=== PATIENT | female | born 1960 | race African-American/Black ===

== ENCOUNTER 2018-02-15 11:06 | Day surgery (SDC) | payer BC ==
[2018-02-14 15:14] VITALS: BMI 36.6
[2018-02-15] MEDS ORDERED: LIDOCAINE HCL/PF 2% SDV 5ML VIAL ONE (12:49)
[2018-02-15] MEDS ORDERED: ROCURONIUM BROMIDE 50 MG/5 ML VIAL ONE (12:49)
[2018-02-15] MEDS ORDERED: fentaNYL CITRATE 250 MCG/5 ML VIAL ONE (12:49)
[2018-02-15] MEDS ORDERED: MIDAZOLAM HCL 2 MG/2 ML SINGLE DOSE VIAL ONE (12:50)
[2018-02-15] MEDS ORDERED: PROPOFOL 20 ML ONE (12:50)
[2018-02-15] MEDS ORDERED: KETOROLAC TROMETHAMINE 30 MG/1 ML VIAL ONE (12:51)
[2018-02-15] MEDS ORDERED: GLYCOPYRROLATE 0.2 MG/1 ML VIAL ONE (12:51)
[2018-02-15] MEDS ORDERED: ceFAZolin SODIUM 1 GM VIAL ONE (12:51)
[2018-02-15] MEDS ORDERED: DEXAMETHASONE SOD PHOSPHATE 4 MG/1 ML VIAL ONE (12:51)
[2018-02-15] MEDS ORDERED: BUPIVACAINE HCL/PF 0.5% (5MG/ML) 10 ML VIAL ONE (12:57)
[2018-02-15] MEDS ORDERED: SCOPOLAMINE HYDROBROMIDE 1 PATCH PATCH.TD72 ONE (13:10)
[2018-02-15] MEDS ORDERED: ACETAMINOPHEN INJECTION 100 ML IVPB ONE (13:27)
[2018-02-15] MEDS ORDERED: CLINDAMYCIN 900 MG PREMIX BAG IVPB ONE (13:27)
[2018-02-15] MEDS ORDERED: ePHEDrine SULFATE 50 MG/1 ML AMPULE ONE ×2 (13:43)
[2018-02-15] MEDS ORDERED: BUPIVACAINE HCL/PF 0.5% (5MG/ML) 10 ML VIAL IJ ONE (14:30)
[2018-02-15] MEDS ORDERED: NEOSTIGMINE METHYLSULFATE 0.5 MG/ML - 10 ML MDV ONE (15:07)
[2018-02-15] MEDS ORDERED: ONDANSETRON 4 MG/2 ML VIAL IVPUSH PRN ×2 (15:33→15:52)
[2018-02-15] MEDS ORDERED: oxyCODONE HCL 5 MG TABLET PO PRN (15:33)
[2018-02-15] MEDS ORDERED: SODIUM CHLORIDE 1,000 ML IV SCH (15:45)
--- NOTE | 2018-02-15 15:47 | OP ---
Operative Note - Note: Operative Date: 02/18/18 Pre-Operative Diagnosis: Morbid Obesity. Hypertension Operation: Laparoscopic Gastric Band. Wedge Biopsy of left lobe of liver. Diagnostic Laparoscopy Findings: 30 cc proximal Gastric pouch created with APL Band Very enlarged left lobe of liver had wedge biopsy performed Implants: APL GAstric Band Post-Operative Diagnosis: Same as Pre-op (Hepatomegaly) Surgeon: Santos Reece Alarm Technician: Caesar Bee Anesthesia: General Specimens Removed: Wedge biopsy of left lobe of liver Estimated Blood Loss (mls): 30 Operative Report Dictated: Yes
[2018-02-15] MEDS ORDERED: PROMETHAZINE HCL 25 MG/1 ML VIAL IVPUSH PRN (15:52)
[2018-02-15] MEDS ORDERED: LACTATED RINGERS SOLUTION 1,000 ML IV SCH (16:00)
[2018-02-15] MEDS ORDERED: FAMOTIDINE 20 MG/50 ML IVPB 20 MG/50 ML MG IVPB ONE (16:42)
[2018-02-15] MEDS ORDERED: ONDANSETRON 4 MG/2 ML VIAL ONE (16:42)
[2018-02-15] MEDS ORDERED: FAMOTIDINE 20 MG PREMIXED IVPB IVPB ONE (16:45)
[2018-02-15 17:04] LABS: HEMATOCRIT 38.5 % (32.4-45.2); HEMOGLOBIN 13.2 GM/dL (10.7-15.3); MCH 27.3 pg (25.7-33.7); MCHC 34.3 g/dl (32.0-36.0); MEAN CELL VOLUME 79.5 fl (80-96); MEAN PLT VOLUME 8.2 fl (7.5-11.1); PLATELET COUNT 318 K/MM3 (134-434); RBC 4.85 M/mm3 (3.60-5.2); RDW 15.1 % (11.6-15.6); WHITE BLOOD COUNT 13.4 K/mm3 (4.0-10.0)
[2018-02-15 17:19] LABS: ANION GAP 8 MMOL/L (8-16); BLOOD UREA NITROGEN 10 mg/dL (7-18); CALCIUM 8.7 mg/dL (8.5-10.1); CHLORIDE 108 mmol/L (98-107); CO2 28 mmol/L (21-32); CREATININE 0.8 mg/dL (0.55-1.02); GLUCOSE,RANDOM 150 mg/dL (74-106); POTASSIUM 3.9 mmol/L (3.5-5.1); SODIUM 144 mmol/L (136-145)
[2018-02-15 17:53] VITALS: TEMP 98.5
[2018-02-15] MEDS ORDERED: oxyCODONE HCL 5 MG TABLET ONE (17:53)
[2018-02-15] MEDS ORDERED: ENOXAPARIN NA (PORCINE) 40 MG/0.4 ML DISP.SYRIN SQ ONE ×2 (18:02→19:00)
[2018-02-15 19:58] VITALS: BP 131/72; PULSE 82
--- NOTE | 2018-02-15 21:37 | OP ---
DATE OF OPERATION: 02/15/2018 PREOPERATIVE DIAGNOSES: 1. Morbid obesity. 2. Hypertension. POSTOPERATIVE DIAGNOSES: 1. Morbid obesity. 2. Hypertension. 3. Hepatomegaly. PROCEDURE PERFORMED: 1. Gastric band for gastric restriction. 2. Wedge biopsy of the left lobe of the liver. 3. Diagnostic laparoscopy. OPERATING SURGEON: Santos Reece MD CREMATORY ATTENDANT: Caesar Bee MD ANESTHESIA: General. OPERATIVE PROCEDURE: The patient was brought into the operating room, placed on the OR table in the supine position. All precautions were taken initially including padding for the back and the feet, and Venodyne boots were placed on both lower extremities. At that point, the abdomen was prepped and draped in the usual manner. A Veress needle was placed in the left upper quadrant, and a pneumoperitoneum was established. A number 12 bladeless trocar was placed in the left upper quadrant. Through that trocar, a laparoscopic camera was placed. Under direct vision, a number 15 bladeless trocar was placed in the right upper quadrant along with a number 5 bladeless trocar and then a number 5 bladeless trocar below the left costal margin. A Esme liver retractor was then placed in the epigastrium to retract the left lobe of the liver. The left lobe was noted to be extremely enlarged and was somewhat difficult to retract in order to obtain visualization of the stomach. Once the liver retractor was then placed, the patient was placed in a 20-degree reverse Trendelenburg position by Anesthesia. As the information assistant surgeon retracted the omentum inferiorly in the left upper quadrant, the operating surgeon used the cautery to score the peritoneum over the left esophagogastric junction. This continued superiorly until the left delonte of the diaphragm was noted. At this point, the information assistant surgeon retracted the stomach toward the patient's left side, and the caudate lobe of the liver was noted. An opening was made in the avascular plane, and the gastrohepatic ligament was partially divided with hemoclips up toward the right esophagogastric junction. The right delonte of the diaphragm was noted, and the peritoneum anterior to it was scored with electrocautery. A laparoscopic instrument was then used to make a blunt tunnel from the right to left delonte until it was free in the left upper quadrant of the abdomen. The gastric band, which was an AP large band, was then prepped by the OR team and placed in the number 15 port site. The band tube was placed in the laparoscopic instrument which was pulled and withdrawn to the patient's right side. The band tubing was placed after the band buckle which was tied or cinched down, and the band was rotated to the patient's right side. A laparoscopic instrument easily fit between the band and the anterior stomach wall. The band was then placed with the Endostitch used to grab a bite of stomach above and below the band and tied over the band. At this point, attention was directed to the enlarged left lobe of liver. With electrocautery turned high, a wedge biopsy was performed on the inferior edge of the left lobe of liver. This included dissecting through the capsule and the parenchyma, and then, the triangular piece of liver was sent off the field as specimen to Pathology. The liver parenchyma was easily controlled with electrocautery so no bleeding was noted. At this point, the band tubing was brought out the number 15 port site under direct vision, all trocars were removed, and pneumoperitoneum was released. The number 15 port site was extended laterally and dissection continued down to the right anterior rectus muscle fascia. Next, 2-0 Prolene sutures were placed at all 4 sites, and the port was then attached to the right anterior rectus muscle. All trocar sites then received 0.25% Marcaine, were all closed with 4-0 Biosyn in subcuticular fashion. The number 15 trocar site, where the port was, was first closed with 3-0 Vicryl in the subcutaneous tissue, followed by 4-0 Biosyn for subcuticular tissue. Dressings were applied. The patient awoke from anesthesia and was transferred out of the operating room to the recovery room in stable condition. EXPECTED BLOOD LOSS: 30 mL Kaleb [id number]
[2018-02-15] MEDS ORDERED: FAMOTIDINE 20 MG/50 ML IVPB 20 MG/50 ML MG IVPB SCH (22:00)
--- NOTE | 2018-02-21 11:35 | PATH ---
Surgical Pathology Report Patient Name: VÍCTOR SEE [facility]. Rec. #: [id number] /Age/Gender: 1960 (Age: 57) / F Account: [id number] Location: [facility] SURGICAL Taken: 02/15/2018 Received: 02/18/2018 Reported: 02/21/2018 Physicians: Santos Reece M.D. Specimen(s) Received LIVER BIOPSY Clinical History Morbid obesity Final Diagnosis LIVER, BIOPSY: LIVER TISSUE WITH MODERATE STEATOSIS (~50%). TRICHROME STAIN SHOWS NO INCREASED FIBROSIS. RETICULIN STAIN SHOWS AN INTACT SINUSOIDAL ARCHITECTURE. IRON STAIN IS NEGATIVE FOR SIDEROSIS. Comment: The biopsy is subcapsular with areas of thermal artifact. Electronically Signed David Theodore M.D. Gross Description Received in formalin labeled "liver biopsy," is a 1.9 x 1.2 x 0.4 cm manzano, irregular portion of soft tissue, consistent with a liver biopsy. The specimen is bisected and entirely submitted in one cassette. /02/18/2018 [facility]02/18/2018
== END 2018-02-15 19:45 | disposition home or self-care (01) ==
LOC: JASU-SURG 11:06 → EDSTATUS 13:00 → JASU-SURG 19:45
PROVIDERS: ATTEND Surgery
PROC: 0FB24ZX Excision of Left Lobe Liver, Percutaneous Endoscopic Approach, Diagnostic (ICD-10-PCS; 2018-02-15)
PROC: 0DV64CZ Restriction of Stomach with Extraluminal Device, Percutaneous Endoscopic Approach (ICD-10-PCS; principal; 2018-02-15 13:00)
DX: E66.01 Morbid (severe) obesity due to excess calories (principal); I10 Essential (primary) hypertension; R16.0 Hepatomegaly, not elsewhere classified
CPT/HCPCS: 43770; 47379; L8699; 36415; 80048; 85027; 86850; 86900; 86901; 88305-TC; 94760; J0131

== ENCOUNTER 2018-03-29 06:56 | Day surgery (SDC) | payer BC ==
[2018-03-28 10:09] VITALS: BMI 33.7
[2018-03-29] MEDS ORDERED: DEXAMETHASONE SOD PHOSPHATE 4 MG/1 ML VIAL ONE (07:24)
[2018-03-29] MEDS ORDERED: fentaNYL CITRATE 250 MCG/5 ML VIAL ONE (07:24)
[2018-03-29] MEDS ORDERED: SUCCINYLCHOLINE CHLORIDE 200 MG/10 ML VIAL ONE (07:24)
[2018-03-29] MEDS ORDERED: PROPOFOL 20 ML ONE ×2 (07:24→09:25)
[2018-03-29] MEDS ORDERED: LIDOCAINE HCL/PF 2% SDV 5ML VIAL ONE (07:24)
[2018-03-29] MEDS ORDERED: ROCURONIUM BROMIDE 50 MG/5 ML VIAL ONE (07:24)
[2018-03-29] MEDS ORDERED: BUPIVACAINE HCL/PF 0.5% (5MG/ML) 10 ML VIAL ONE (07:35)
[2018-03-29] MEDS ORDERED: LACTATED RINGERS SOLUTION 1,000 ML IV SCH (08:15)
[2018-03-29] MEDS ORDERED: ONDANSETRON 4 MG/2 ML VIAL IVPUSH PRN (08:15)
[2018-03-29] MEDS ORDERED: oxyCODONE HCL 5 MG TABLET PO PRN ×2 (08:15)
[2018-03-29] MEDS ORDERED: MIDAZOLAM HCL 2 MG/2 ML SINGLE DOSE VIAL ONE (08:21)
[2018-03-29] MEDS ORDERED: BUPIVACAINE HCL/PF (5 MG/ML) 30 ML VIAL IJ ONE ×2 (08:40)
[2018-03-29] MEDS ORDERED: ePHEDrine SULFATE 50 MG/1 ML AMPULE ONE ×2 (08:49→09:11)
--- NOTE | 2018-03-29 09:44 | OP ---
Operative Note - Note: Operative Date: 03/29/18 Pre-Operative Diagnosis: Right upper abdominal pain. Malfunctioning subcutaneous gastric band port. Morbid Obesity Operation: Revision of subcutaneous right upper abdominal port. Gastric Band adjustment Findings: Subcutaneous port with complete rotation 180 degrees Port places towards midline on linea alba Post-Operative Diagnosis: Same as Pre-op Surgeon: Santos Reece Anesthesia: General Estimated Blood Loss (mls): 10 Operative Report Dictated: Yes
[2018-03-29] MEDS ORDERED: SODIUM CHLORIDE 1,000 ML IV SCH (09:45)
[2018-03-29] MEDS ORDERED: FAMOTIDINE 20 MG/50 ML IVPB 20 MG/50 ML MG IVPB SCH (10:00)
[2018-03-29] MEDS ORDERED: FAMOTIDINE 20 MG PREMIXED IVPB IVPB ONE (10:05)
[2018-03-29] MEDS ORDERED: ONDANSETRON 4 MG/2 ML VIAL ONE (10:28)
--- NOTE | 2018-03-29 11:30 | OP ---
DATE OF OPERATION: 03/29/2018 PREOPERATIVE DIAGNOSES: 1. Right upper abdominal pain secondary to malfunctioning gastric band port. 2. Morbid obesity. POSTOPERATIVE DIAGNOSES: 1. Right upper abdominal pain secondary to malfunctioning gastric band port. 2. Morbid obesity. PROCEDURE PERFORMED: 1. Revision of right upper abdominal subcutaneous gastric band port. 2. Gastric adjustment. SURGEON: Santos Reece MD ANESTHESIA: General. OPERATIVE PROCEDURE: The patient was brought into the operating room, placed on the OR table in a supine position. All precautions were taken initially including padding for the back, and Venodyne boots were placed on both lower extremities. At that point, the abdomen was prepped and draped in usual manner. One-half percent Marcaine approximately 10 mL was delivered into the right upper quadrant trocar incision. Once this took effect, a scalpel was used to make incision through the skin, and there was noted to be scar tissue from the patient's previous surgery in that area. This incision was then extended with electrocautery down through the subcutaneous tissue. With the technical publications manager providing retraction, the operating surgeon was able to dissect the subcutaneous tissue down to the port on the right anterior rectus muscle. The gastric band port was noted to be rotated 180 degrees and was facing opposite end into the field. The sutures holding the port which some of which had pulled were then cut from the port and they were removed and sent off the field. At this point, the port was then free from the right anterior rectus muscle, and we lifted up into the operative field and was covered with sterile gauze. At this point, the dissection now continued more medially to find a good area to place the port again. With the technical publications manager provided retraction, the operating surgeon was able to clean the subcutaneous tissue more medially, and this exposed the linea alba. Once the linea alba was exposed, four 2-0 Prolene sutures were placed on all 4 sides, and these were placed through the subcutaneous port which were then placed on the linea alba, and all 4 sutures were tied down. When it was completed, the port was perpendicular straight up facing the skin. No bleeding was noted in the area, and at that point, closure was begun on the wound. The subcutaneous tissue was closed with interrupted 3-0 Vicryl sutures, and this was followed by 4-0 Biosyn subcuticular fashion on the skin. Dressings were applied at this point. It should be noted that prior to closing the skin, the port was then accessed and 3 mL of normal saline was placed for initial fill for the patient's diagnosis of morbid obesity. Once the skin was closed, dressings were applied which included Steri-Strips followed by band-aids. The patient awoke from anesthesia and transferred out of the operating room to the recovery room in stable condition. EXPECTED BLOOD LOSS: 10 mL. DISPOSITION: The patient was transferred to the recovery room in stable condition. Kaleb [id number]
[2018-03-29 11:59] VITALS: BP 125/60; PULSE 77; TEMP 97.5
== END 2018-03-29 12:20 | disposition home or self-care (01) ==
LOC: JASU-SURG 06:56
PROVIDERS: ATTEND Surgery
PROC: 0DW60CZ Revision of Extraluminal Device in Stomach, Open Approach (ICD-10-PCS; principal; 2018-03-29 08:00)
DX: T85.528A Displacement of other gastrointestinal prosthetic devices, implants and grafts, initial encounter (principal)
CPT/HCPCS: 86850; 86900; 86901; 94760